=== PATIENT | male | born 1985 | race African-American/Black ===

== ENCOUNTER 2017-07-24 20:51 | Observation (INO) | payer MEDICAID ==
[~2017-07-24] VITALS: Ht 195.6 cm; Wt 100.0 kg
[2017-07-24 21:41] LABS: BASOPHILS # (AUTO) 0.09 x10^3/uL (0-0.1); BASOPHILS % (AUTO) 1 % (0-1); EOSINOPHILS # (AUTO) 0.05 x10^3/uL (0-0.4); EOSINOPHILS % (AUTO) 0 % (1-7); LYMPHOCYTES # (AUTO) 1.26 x10^3/uL (1-3.4); LYMPHOCYTES % (AUTO) 11 % (22-44); MD NO; MEAN CORPUSCULAR HEMOGLOBIN 30.5 pg (27.5-34.5); MEAN CORPUSCULAR HGB CONC 34.2 g/dL (33.2-36.2); MEAN CORPUSCULAR VOLUME 89.2 fL (81-97); MEAN PLATELET VOLUME 8.4 fL (7.4-10.4); MONOCYTES # (AUTO) 0.48 x10^3/uL (0.2-0.8); MONOCYTES % (AUTO) 4 % (2-9); NEUTROPHILS # (AUTO) 9.34 x10^3/uL (1.8-6.8); NEUTROPHILS % (AUTO) 83 % (42-75); PLATELET COUNT 236 x10^3/uL (130-400); RED BLOOD COUNT 5.19 x10^6/uL (4.38-5.82); RED CELL DISTRIBUTION WIDTH 14.1 % (9.4-14.8)
[2017-07-24 21:43] LABS: AMPHETAMINE SCREEN, URINE Negative (Negative); BARBITURATE SCREEN, URINE Negative (Negative); BENZODIAZEPINE SCREEN, URINE Negative (Negative); CANNABINOID SCREEN, URINE Positive (Negative); COCAINE SCREEN, URINE Negative (Negative); METHADONE SCREEN, URINE Negative (Negative); OPIATE SCREEN, URINE Negative (Negative)
[2017-07-24 21:52] LABS: ALANINE AMINOTRANSFERASE 26 U/L (12-78); ALBUMIN 3.9 g/dL (3.4-5.0); ANION GAP 6 mmol/L (5-15); CALCIUM 8.6 mg/dL (8.5-10.1); CHLORIDE 109 mmol/L (98-107); SALICYLATE LEVEL 5.4 mg/dL (2.8-20.0)
[2017-07-24 21:54] LABS: ALKALINE PHOSPHATASE 53 U/L (45-117); BILIRUBIN,TOTAL 0.4 mg/dL (0.2-1.0); TOTAL PROTEIN 7.2 g/dL (6.4-8.2)
[2017-07-24 21:56] LABS: ACETAMINOPHEN < 2 mcg/mL (10-30)
[2017-07-24] MEDS ORDERED: SERT50TA5 PO (22:06)
[2017-07-24] MEDS ORDERED: PRAZOSIN 1 MG CAPSULE PO ONE (23:30)
[2017-07-24] MEDS ORDERED: LORazepam 1MG TABLET PO PRN (23:30)
[2017-07-25] MEDS ORDERED: DOCUSATE 100 MG CAPSULE PO PRN (00:30)
[2017-07-25] MEDS ORDERED: ACETAMINOPHEN 325 MG TABLET PO PRN (00:30)
[2017-07-25] MEDS ORDERED: ONDANSETRON ODT 4 MG PO PRN (00:30)
[2017-07-25 01:30] LABS: MICROSCOPIC INDICATED
[2017-07-25 01:34] LABS: CULTURE INDICATED? NO
[2017-07-25] MEDS ORDERED: SERTRALINE 50MG TABLET ONE (07:53)
[2017-07-25] MEDS ORDERED: SERTRALINE 50MG TABLET PO SCH (09:00)
[2017-07-25] MEDS: PRAZOSIN 1 MG CAPSULE PO SCH ×2 (20:32)
[2017-07-25 22:08] VITALS: BP 136/84
[2017-07-26] MEDS: SERTRALINE 100MG TABLET PO SCH (08:25)
[2017-07-26 08:26] VITALS: BP 164/89
[2017-07-26 19:35] VITALS: BP 132/84
[2017-07-26] MEDS: PRAZOSIN 1 MG CAPSULE PO SCH (20:53)
[2017-07-27 07:45] VITALS: BP 141/89
[2017-07-27] MEDS: SERTRALINE 100MG TABLET PO SCH (10:20)
[2017-07-27] MEDS ORDERED: LORazepam 1MG TABLET PO ONE (11:30)
[2017-07-27 19:37] VITALS: BP 131/84
[2017-07-27] MEDS: PRAZOSIN 1 MG CAPSULE PO SCH (21:01)
[2017-07-28] MEDS: SERTRALINE 100MG TABLET PO SCH (08:48)
[2017-07-28 11:49] VITALS: BP 138/82
[2017-07-28 20:28] VITALS: BP 106/46
[2017-07-28] MEDS: PRAZOSIN 1 MG CAPSULE PO SCH (21:00)
[2017-07-29 07:30] VITALS: BP 148/78
[2017-07-29] MEDS: SERTRALINE 100MG TABLET PO SCH (09:00)
[2017-07-29] MEDS ORDERED: ZIPRASIDONE 20MG CAPSULE PO ONE (19:00)
[2017-07-29 19:36] VITALS: BP 137/79
[2017-07-29] MEDS: PRAZOSIN 1 MG CAPSULE PO SCH (21:27)
[2017-07-30 07:30] VITALS: BP 135/86
[2017-07-30] MEDS: SERTRALINE 100MG TABLET PO SCH (09:37)
[2017-07-30] MEDS: PRAZOSIN 1 MG CAPSULE PO SCH (20:49)
[2017-07-30 20:55] VITALS: BP 131/85
[2017-07-31] MEDS: SERTRALINE 100MG TABLET PO SCH (09:06)
[2017-07-31 09:54] VITALS: BP 130/92
[2017-07-31] MEDS ORDERED: ZIPRASIDONE 20MG CAPSULE ONE (15:41)
[2017-07-31] MEDS: ZIPRASIDONE 20MG CAPSULE PO ONE ×2 (15:42→16:00)
[2017-07-31] MEDS ORDERED: ZIPRASIDONE 20 MG INJ IM ONE (15:45)
== END 2017-07-31 16:46 | disposition home or self-care (01) ==
LOC: ED 21:58 → EDIP 07-25 00:05 → 3E 07-25 22:03
PROVIDERS: ADMIT Internal Medicine; ATTEND Internal Medicine
DX: R45.851 Suicidal ideations (principal); R45.850 Homicidal ideations; J45.909 Unspecified asthma, uncomplicated; F32.9 Major depressive disorder, single episode, unspecified; F12.90 Cannabis use, unspecified, uncomplicated; F17.210 Nicotine dependence, cigarettes, uncomplicated; F43.10 Post-traumatic stress disorder, unspecified; Z79.899 Other long term (current) drug therapy
CPT/HCPCS: 36415; 80053; 80307; 80329; 81001; 85025; 99285; G0378; J3486; G0480